=== PATIENT | male | born 1950 | race Caucasian/White ===

== ENCOUNTER → 2019-12-05 | Day surgery (SDC) | payer OTHER, MEDICARE ==
[2019-12-01 10:38] LABS: BASOPHILS % 0.3 % (0.0-1.0); EOSINOPHILS # (AUTO) 0.5 (0.0-0.4); EOSINOPHILS % 4.3 % (0.0-6.0); HEMATOCRIT 38.3 % (38.2-49.6); HEMOGLOBIN 12.4 g/dL (14.0-18.0); LYMPHOCYTES # (AUTO) 2.6 (1.0-3.2); LYMPHOCYTES % 22.3 % (18.0-39.1); MEAN CORPUSCULAR HEMOGLOBIN 27.9 pg (28-32); MEAN CORPUSCULAR HGB CONC 32.4 g/dL (31-35); MEAN CORPUSCULAR VOLUME 86.1 fL (81-99); MONOCYTES # (AUTO) 0.7 (0.2-0.8); MONOCYTES % 6.3 % (4.4-11.3); NEUTROPHILS # (AUTO) 7.8 (2.1-6.9); NEUTROPHILS % 66.3 % (38.7-80.0); PLATELET COUNT 180 x10e3/uL (140-360); RED BLOOD COUNT 4.45 x10e6/uL (4.3-5.7); RED CELL DISTRIBUTION WIDTH 13.9 % (11.7-14.4)
[~2019-12-05] MED LIST: ALBUTEROL INH; ALBUTEROL0.63 MG/3 NEB; ASPIR 8181 MG PO; ATORVASTATIN CA20 MG PO; BUSPIRONE HCL5 MG PO; CALCIUM 500+D1 EACH PO; CEPHALEXIN500 MG PO; CETIRIZINE HCL10 MG PO; CLINDAMYCIN TOP; DICLOFENAC TOP; DICYCLOMINE HCL10 MG PO; DOCUSATE SODIU100 MG PO; FAMOTIDINE20 MG PO; FERROUS GLUCON324 M1 PO; FINASTERIDE5 MG PO; FLOMAX0.4 MG PO; FLUTICASONE PRO16 GM NS; FUROSEMIDE40 MG PO; GABAPENTIN100 MG PO; INSULIN REGULAR, HUMAN 100 UNIT/1 ML 3ML VIAL ONE; ISOSORBIDE MONO20 MG PO; LANTUS 3ML100 UNITS/ SQ; LIDOCAINE HCL 2% LOCAL INJ 5 ML SDV VIAL INJ ONE; LIDOCAINE TOP; LOSARTAN POTASS25 MG PO; METFORMIN HCL500 MG PO; METOPROLOL TAR100 MG PO; MINIPRESS1 MG PO; MIRTAZAPINE45 MG PO; MONTELUKAST SOD10 MG PO; NORCO 10-325 T1 EACH PO; NOVOLOG100 UNIT/1 SC; OMEPRAZOLE40 MG PO; PERIDEX473 M1 PO; POTASSIUM CHLO20 ME1 PO; PROPOFOL IV EMULSION 10 MG/ML 20 ML VIAL ONE; QUESTRAN PACKET4 GM PO; REFRESH PLUS1 EACH OP; SIMETHICONE80 MG PO; SYMBICORT 16010.2 GM INH; TERBINAFINE HCL TOP; TIOTROPIUM INH; VENLAFAXINE H37.5 M2 PO; VENLAFAXINE HCL75 M2 PO; VENLAFAXINE HCL75 MG PO; VITAMIN B-121000 MCG PO; ZOLPIDEM TARTRAT5 MG PO
[2019-12-05 14:30] VITALS: BP 122/85
== END | disposition home or self-care (01) ==
LOC: OR 10:24
PROVIDERS: ATTEND Internal Medicine Gastroenterology
DX: R13.10 Dysphagia, unspecified (principal); D12.2 Benign neoplasm of ascending colon; D12.3 Benign neoplasm of transverse colon; K29.70 Gastritis, unspecified, without bleeding; K31.89 Other diseases of stomach and duodenum; K44.9 Diaphragmatic hernia without obstruction or gangrene; K21.9 Gastro-esophageal reflux disease without esophagitis; Z98.84 Bariatric surgery status; K57.30 Diverticulosis of large intestine without perforation or abscess without bleeding; K64.8 Other hemorrhoids; G47.30 Sleep apnea, unspecified; J44.9 Chronic obstructive pulmonary disease, unspecified; E11.9 Type 2 diabetes mellitus without complications; I25.2 Old myocardial infarction; I11.0 Hypertensive heart disease with heart failure; I50.9 Heart failure, unspecified; E66.01 Morbid (severe) obesity due to excess calories; I42.9 Cardiomyopathy, unspecified; D50.9 Iron deficiency anemia, unspecified; I45.10 Unspecified right bundle-branch block; I25.118 Atherosclerotic heart disease of native coronary artery with other forms of angina pectoris; R94.4 Abnormal results of kidney function studies; F43.10 Post-traumatic stress disorder, unspecified; Z01.810 Encounter for preprocedural cardiovascular examination; Z01.812 Encounter for preprocedural laboratory examination; Z11.59 Encounter for screening for other viral diseases; Z79.84 Long term (current) use of oral hypoglycemic drugs; Z79.82 Long term (current) use of aspirin; Z79.4 Long term (current) use of insulin
CPT/HCPCS: 36415 ×2; 43239; 45384; 45385; 82948; 85025; 87635; 93005; J1817; J2001; J2704; 45378